=== PATIENT | female | born 1935 | race Caucasian/White ===

== ENCOUNTER 2019-08-25 16:06 | Inpatient (IN) | payer MEDICARE, MEDICAID ==
[~2019-08-25] VITALS: Ht 154.9 cm; Wt 65.8 kg
--- NOTE | 2019-08-25 16:34 | NUR ---
PATIENT CAME IN TO THE ER [id number], FROM HOME, WEAK AND HAD A FALL, -KO. ON ROOM AIR, BREATHING EVENLY AND UNLABORED. CONNECTED TO THE MONITOR AND PULSE OX. KEPT COMFORTABLE, WILL CONTINUE TO MONITOR ACCORDINGLY.
[2019-08-25 16:42] LABS: BASOPHILS # (AUTO) 0.1 /CMM (0.0-0.2); EOSINOPHILS % (AUTO) 2.4 % (0.0-6.0); HEMATOCRIT 43 % (33-45); HEMOGLOBIN 14.5 g/dL (11.5-14.8); LYMPHOCYTES # (AUTO) 1.3 /CMM (0.8-4.8); MEAN CORPUSCULAR HGB CONC 34 g/dl (31.0-36.0); MEAN CORPUSCULAR VOLUME 86 fL (82-100); MONOCYTES # (AUTO) 0.7 /CMM (0.1-1.30); MONOCYTES % (AUTO) 10.3 % (2.0-12.0); NEUTROPHILS # (AUTO) 4.7 /CMM (1.8-8.9); NEUTROPHILS % (AUTO) 67.3 % (43.0-81.0); PLATELET COUNT (AUTO) 148 /CMM (150-450); RED BLOOD CELL COUNT(AUTO) 5.03 MIL/uL (4.0-5.2)
[2019-08-25 16:52] LABS: CALCIUM, SERUM 11.1 mg/dL (8.5-10.1); CARBON DIOXIDE 23 mmol/L (21-32); CHLORIDE 105 mmol/L (98-107); CREATININE 1.3 mg/dL (0.6-1.3); GLUCOSE 155 mg/dL (74-106); POTASSIUM 4.1 mmol/L (3.5-5.1); SODIUM SERUM 137 mmol/L (136-145); UREA NITROGEN, BLOOD 28 mg/dL (7-18)
--- NOTE | 2019-08-25 16:55 | NUR ---
pt wheeled to ct
[2019-08-25 16:57] LABS: ALANINE AMINOTRANSFERASE 23 U/L (12-78); ALBUMIN 3.5 g/dL (3.4-5.0); ALKALINE PHOSPHATASE 129 U/L (46-116); ASPARTATE AMINOTRANSFERASE 16 U/L (15-37); BILIRUBIN,DIRECT 0.2 mg/dL (0.0-0.2); BILIRUBIN,TOTAL 0.6 mg/dL (0.2-1.0); TOTAL PROTEIN, SERUM 7.4 g/dL (6.4-8.2)
[2019-08-25 17:03] LABS: MAGNESIUM 2.3 mg/dL (1.8-2.4)
--- NOTE | 2019-08-25 17:04 | NUR ---
pt came back from ct
--- NOTE | 2019-08-25 18:24 | NUR ---
PAGED [facility].
[2019-08-25] MEDS ORDERED: MEMA1CAP3 PO (18:25)
[2019-08-25] MEDS ORDERED: IBAN150T16 PO (18:25)
[2019-08-25] MEDS ORDERED: GLIM1TAB2 PO (18:25)
[2019-08-25] MEDS ORDERED: LORA0.5T PO (18:25)
[2019-08-25] MEDS ORDERED: LOSA100T31 PO (18:25)
[2019-08-25] MEDS ORDERED: RIVA10TA PO (18:25)
[2019-08-25] MEDS ORDERED: MECL-102 PO (18:25)
[2019-08-25] MEDS ORDERED: METO-357 PO (18:25)
[2019-08-25] MEDS ORDERED: SITA1TAB6 PO (18:25)
--- NOTE | 2019-08-25 19:18 | NUR ---
REC'D REPORT FROM VALERIE LEVY FOR OBI
--- NOTE | 2019-08-25 19:40 | NUR ---
PAGED [facility].
[2019-08-25 20:00] VITALS: BP 176/75
--- NOTE | 2019-08-25 20:02 | NUR ---
GAVE REPORT TO URMILA LEVY FOR OBI
--- NOTE | 2019-08-25 20:19 | NUR ---
PT TRANSFERRED PER ACLS PROTOCOL
--- NOTE | 2019-08-25 20:25 | NUR ---
MICROWAVE ENGINEERROUTE DELIVERER NOTE: PT ADMITTED FROM ER VIA [facility] WITH ADMITTING DIAGNOSIS OF CHF. PT IS PAKISTANI SPEAKING ONLY, DAUGHTER AT BEDSIDE. PT IS ALERT AND ORIENTED X1. NO APPARENT DISTRESS NOTED. DENIES PAIN AND DISCOMFORT AT THIS TIME. ON ROOM AIR, NO SOB NOTED. SATURATING WELL. ON TELE MONITOR AFIB CONTROLLED HR 71BPM. IV ON RIGHT ANTECUBITAL #20 INTACT AND PATENT, FLUSHING WELL. PERTINENT ASSESSMENTS DONE. SKIN IS INTACT. KEPT CLEAN, DRY AND COMFORTABLE. CALL LIGHT PLACED WITHIN REACH. SIDE RAILS UP X3. BED ALARM ON. BED LOCKED AND IN LOWEST POSITION. WILL CONTINUE TO MONITOR PT.
[2019-08-25] MEDS ORDERED: ONDANSETRON HCL/PF 4 MG/2 ML VIAL IVP PRN (20:30)
[2019-08-25] MEDS ORDERED: POTASSIUM CHLORIDE 20 MEQ TAB.PRT.SR PO ONE (20:30)
[2019-08-25] MEDS ORDERED: ACETAMINOPHEN 325 MG TABLET PO PRN (20:30)
[2019-08-25] MEDS ORDERED: MECLIZINE HCL 25 MG TABLET PO PRN (20:30)
[2019-08-25] MEDS ORDERED: LORAZEPAM 0.5 MG TABLET PO PRN (20:30)
[2019-08-25] MEDS ORDERED: Z GUARD REMEDY 2 OZ OINT TP PRN (20:30)
[2019-08-25] MEDS ORDERED: POTASSIUM CHLORIDE 20 MEQ POWDER PACKET PO ONE (21:00)
[2019-08-25] MEDS ORDERED: ENOXAPARIN SODIUM 30 MG/0.3 ML DISP.SYRIN SQ SCH (21:00)
[2019-08-25] MEDS ORDERED: BUMETANIDE INJ 6 MG in IV NS 0.9% 36 ML IV ONE (21:00)
[2019-08-25] MEDS ORDERED: IV NS 0.9% 1,000 ML IV PRN (21:30)
[2019-08-25] MEDS ORDERED: DEXTROSE 50%-WATER 50 ML DISP.SYRIN IV PRN (21:30)
[2019-08-25] MEDS: DONEPEZIL 5 MG TABLET PO SCH (21:34)
[2019-08-25] MEDS: BLOOD SUGAR DIAGNOSTIC 1 EACH STRIP IN SCH (21:44)
[2019-08-25] MEDS: INSULIN REGULAR, HUMAN 100 UNIT/ML 3 ML VIAL SQ PRN (21:45)
[2019-08-25 21:49] VITALS: BP 176/75
[2019-08-26] VITALS (8 sets, daily range): BP systolic 156–191; BP diastolic 65–118
[2019-08-26] MEDS: hydrALAZINE HCL 25 MG TABLET PO PRN ×2 (00:37→08:35)
--- NOTE | 2019-08-26 06:37 | NUR ---
INFORMATION SYSTEMS CONSULTANT NOTE: NO CHANGES NOTED THROUGHOUT THE SHIFT. NO APPARENT DISTRESS NOTED. DENIES PAIN AND DISCOMFORT AT THIS TIME. ON ROOM AIR, NO SOB NOTED. AFIB CONTROLLED ON TELE MONITOR HR 80 BPM. IV ON RIGHT ANTECUBITAL #20 INTACT AND PATENT, IVF INFUSING WELL. KEPT CLEAN, DRY AND COMFORTABLE. SAFETY AND FALL PRECAUTIONS OBSERVED AND MAINTAINED. WILL ENDORSE TO DAY SHIFT RN FOR CONTINUITY OF CARE.
--- NOTE | 2019-08-26 07:10 | NUR ---
CASTING TECHNICIAN OPENING NOTES RECEIVED PT LYING ON BED,ALERT/ORIENTED X1 WITH UZBEK SPEAKING PT.ON TELE HR IS 90 WITH CONTROLLED A FIB.ON ROOM AIR,TOLERATING WELL.NO SOB AND DISTRESS NOTED.DENIES DIZZINESS AND PAIN FOR NOW.IV LINE IS ON RIGHT AC G20 WITH IV FLUID 0.9 %NS @100ML/HR IS RUNNING.SITE IS CLEAN,DRY AND INTACT.NO INFILTRATION NOTED.SAFETY IS MAINTAINED AT ALL TIMES.CALL LIGHT IS WITHIN REACH.WILL CONTINUE TO MONITOR THE PT CLOSELY.
[2019-08-26 07:45] LABS: BASOPHILS # (AUTO) 0.1 /CMM (0.0-0.2); BASOPHILS % (AUTO) 0.7 % (0.0-2.0); EOSINOPHILS % (AUTO) 1.9 % (0.0-6.0); HEMATOCRIT 43 % (33-45); HEMOGLOBIN 14.1 g/dL (11.5-14.8); LYMPHOCYTES # (AUTO) 1.4 /CMM (0.8-4.8); LYMPHOCYTES % (AUTO) 18.6 % (20.0-44.0); MEAN CORPUSCULAR HGB CONC 33 g/dl (31.0-36.0); MEAN CORPUSCULAR VOLUME 86 fL (82-100); MONOCYTES # (AUTO) 0.7 /CMM (0.1-1.30); MONOCYTES % (AUTO) 9.2 % (2.0-12.0); NEUTROPHILS # (AUTO) 5.3 /CMM (1.8-8.9); NEUTROPHILS % (AUTO) 69.6 % (43.0-81.0); PLATELET COUNT (AUTO) 130 /CMM (150-450); RED BLOOD CELL COUNT(AUTO) 5.03 MIL/uL (4.0-5.2); WHITE BLOOD COUNT (AUTO) 7.6 K/uL (4.3-11.0)
[2019-08-26] MEDS: BLOOD SUGAR DIAGNOSTIC 1 EACH STRIP IN SCH ×4 (07:58→22:04)
[2019-08-26] MEDS: INSULIN REGULAR, HUMAN 100 UNIT/ML 3 ML VIAL SQ PRN ×4 (08:03→22:10)
[2019-08-26 08:10] LABS: ALBUMIN 3.3 g/dL (3.4-5.0); BILIRUBIN,TOTAL 0.9 mg/dL (0.2-1.0); CALCIUM, SERUM 10.6 mg/dL (8.5-10.1); CREATININE 1.2 mg/dL (0.6-1.3); PHOSPHORUS 2.6 mg/dL (2.5-4.9); POTASSIUM 3.8 mmol/L (3.5-5.1)
[2019-08-26 08:15] LABS: THYROID STIMULATING HORMONE 1.263 uIU/mL (0.358-3.74)
[2019-08-26] MEDS: GLIMEPIRIDE 1 MG TABLET PO SCH (08:32)
[2019-08-26] MEDS: MEMANTINE HCL 5 MG TABLET PO SCH ×2 (08:33→17:04)
[2019-08-26] MEDS: LOSARTAN POTASSIUM 50 MG TABLET PO SCH (08:33)
[2019-08-26] MEDS: METOPROLOL SUCCINATE 50 MG TAB.SR.24H PO SCH (08:33)
[2019-08-26] MEDS: IV NS 0.9% 1,000 ML IV PRN ×2 (10:15→23:50)
[2019-08-26] MEDS ORDERED: RIVAROXABAN 10 MG TABLET PO SCH (17:00)
--- NOTE | 2019-08-26 17:30 | NUR ---
SYSTEMS SECURITY CONSULTANT NOTES ORDERED TO DO PT EVAL AND BID PER FAMILY REQUEST.NEW ORDERS NOTED AND CARRIED OUT.
--- NOTE | 2019-08-26 18:32 | NUR ---
INSTRUCTOR TAP DANCING CLOSING NOTES PT IS LYING ON BED.ALERT/ORIENTED X2.IV LINE IS IN PLACE.RESPIRATION IS EVEN AND NONLABORED.NO SIGNIFICANT CHANGES NOTED IN THE SHIFT.WILL ENDORSE TO ENDLESS STEAMER TENDER RN FOR OBI.
--- NOTE | 2019-08-26 20:00 | NUR ---
SAIRA RN OPENING NOTES RECEIVED BEDSIDE REPORT FROM AM RN. PT LYING ON BED,ALERT/ORIENTED X3 NAURUAN SPEAKING ONLY.ON TELE MONITOR CONTROLLED A FIB.ON ROOM AIR,TOLERATING WELL.NO SOB AND DISTRESS NOTED.DENIES DIZZINESS AND PAIN FOR NOW.IV LINE IS ON RIGHT AC G20 WITH IV FLUID 0.9 %NS @125ML/HR RUNNING.SITE IS CLEAN,DRY AND INTACT.NO INFILTRATION NOTED.SAFETY IS MAINTAINED AT ALL TIMES.CALL LIGHT IS WITHIN REACH.WILL CONTINUE TO MONITOR PT CLOSELY.
[2019-08-26] MEDS: DONEPEZIL 5 MG TABLET PO SCH (22:04)
[2019-08-27] VITALS: BP 160/94
[2019-08-27 04:00] VITALS: BP 112/64
[2019-08-27 05:24] VITALS: BP_SYST 112; BP_SYST 167; BP_DIAS 113; BP_DIAS 64
[2019-08-27 07:23] LABS: BASOPHILS % (AUTO) 0.7 % (0.0-2.0); EOSINOPHILS % (AUTO) 2.5 % (0.0-6.0); HEMATOCRIT 42 % (33-45); HEMOGLOBIN 13.7 g/dL (11.5-14.8); LYMPHOCYTES # (AUTO) 1.5 /CMM (0.8-4.8); LYMPHOCYTES % (AUTO) 21.9 % (20.0-44.0); MEAN CORPUSCULAR HGB CONC 33 g/dl (31.0-36.0); MEAN CORPUSCULAR VOLUME 86 fL (82-100); MONOCYTES # (AUTO) 0.8 /CMM (0.1-1.30); MONOCYTES % (AUTO) 10.6 % (2.0-12.0); NEUTROPHILS # (AUTO) 4.6 /CMM (1.8-8.9); NEUTROPHILS % (AUTO) 64.3 % (43.0-81.0); PLATELET COUNT (AUTO) 123 /CMM (150-450); WHITE BLOOD COUNT (AUTO) 7.1 K/uL (4.3-11.0)
--- NOTE | 2019-08-27 07:30 | NUR ---
tele grout sewer line repairer opening notes pt received in bed, a/ox1. on tele afib/aflutter. pt able to make needs know. blood pressure elevated 200/100. will administer bp meds and notify md. bed in locked/lowest position. call light in reach. will cont to monitor.
[2019-08-27 07:32] LABS: ALBUMIN 2.8 g/dL (3.4-5.0); BILIRUBIN,TOTAL 1.1 mg/dL (0.2-1.0); CREATININE 1.1 mg/dL (0.6-1.3); MAGNESIUM 1.9 mg/dL (1.8-2.4); PHOSPHORUS 2.6 mg/dL (2.5-4.9); POTASSIUM 3.7 mmol/L (3.5-5.1); TOTAL PROTEIN, SERUM 6.3 g/dL (6.4-8.2)
[2019-08-27] MEDS: BLOOD SUGAR DIAGNOSTIC 1 EACH STRIP IN SCH ×2 (07:54→12:19)
[2019-08-27 08:00] VITALS: BP 200/100
[2019-08-27] MEDS: GLIMEPIRIDE 1 MG TABLET PO SCH (08:03)
[2019-08-27] MEDS: METOPROLOL SUCCINATE 50 MG TAB.SR.24H PO SCH (08:05)
[2019-08-27] MEDS: hydrALAZINE HCL 25 MG TABLET PO PRN (08:05)
[2019-08-27] MEDS: LOSARTAN POTASSIUM 50 MG TABLET PO SCH (08:06)
[2019-08-27] MEDS: MEMANTINE HCL 5 MG TABLET PO SCH (08:06)
[2019-08-27] MEDS ORDERED: AMLODIPINE BESYLATE 10 MG TABLET PO SCH (09:00)
[2019-08-27] MEDS ORDERED: NITROGLYCERIN 30 GM TUBE TP SCH (10:00)
[2019-08-27] MEDS: hydrALAZINE HCL 50 MG TABLET PO SCH ×2 (10:13→12:39)
[2019-08-27 11:07] LABS: *SPE ALBUMIN 3.4 g/dL (2.9-4.4); *SPE ALPHA-1-GLOBULIN 0.2 g/dL (0.0-0.4); *SPE ALPHA-2-GLOBULIN 0.8 g/dL (0.4-1.0); *SPE BETA GLOBULIN 1.2 g/dL (0.7-1.3); *SPE GLOBULIN, TOTAL 3.3 g/dL (2.2-3.9); *SPE M-SPIKE Not Observed g/dL (Not Observed); *SPEGAMMA GLOBULIN 1.1 g/dL (0.4-1.8)
[2019-08-27] MEDS ORDERED: AMLO10TA7 PO (11:17)
[2019-08-27] MEDS ORDERED: HYDR-4077 PO (11:17)
[2019-08-27 12:00] VITALS: BP 155/80
[2019-08-27 12:39] VITALS: BP 155/80
[2019-08-27] MEDS: INSULIN REGULAR, HUMAN 100 UNIT/ML 3 ML VIAL SQ PRN (12:39)
[2019-08-27] MEDS ORDERED: INFLUENZA VACCINE 2019-20 0.5 ML DISP.SYRIN IM ONE (14:00)
[2019-08-27] MEDS ORDERED: PNEUMOCOCCAL 23-VAL P-SAC VAC 0.5 ML VIAL SQ ONE (14:00)
--- NOTE | 2019-08-27 16:30 | NUR ---
TRUST MANAGER NOTES PT WITH STABLE BP; IV REMOVED. TELE BOX REMOVED. DISCHARGE INSTRUCTIONS/PRESCRIPTION GIVEN TO PARAMEDICS. SKIN INTACT. FAMILY NOTIFIED OF DISCHARGE.
== END 2019-08-27 16:20 | disposition home health service (06) | DRG 291 ==
LOC: ER 16:09 → TELE1 20:03
PROVIDERS: ADMIT Nurse Practitioner Acute Care; ATTEND Internal Medicine
DX: I11.0 Hypertensive heart disease with heart failure (principal); N17.0 Acute kidney failure with tubular necrosis; G93.41 Metabolic encephalopathy; I48.20 Chronic atrial fibrillation, unspecified; I50.33 Acute on chronic diastolic (congestive) heart failure; E11.9 Type 2 diabetes mellitus without complications; G31.84 Mild cognitive impairment of uncertain or unknown etiology; E83.52 Hypercalcemia; E78.5 Hyperlipidemia, unspecified; E86.0 Dehydration; Z90.49 Acquired absence of other specified parts of digestive tract; Z91.81 History of falling; Z79.84 Long term (current) use of oral hypoglycemic drugs; Z86.73 Personal history of transient ischemic attack (TIA), and cerebral infarction without residual deficits; Z79.01 Long term (current) use of anticoagulants
CPT/HCPCS: 36415; 70450-TC; 71045-TC; 76770-TC; 80048-TC; 80053-TC; 80061-TC; 80076-TC; 82962-TC; 83540-TC; 83735-TC; 83880; 84100-TC; 84155; 84165; 84443-TC; 84484-TC; 85025-TC; 85730-TC; 87081-TC; 90732; 93307-TC; 97116-TC; 97530-TC; A4216; G0378; J1815; J3490; J7030; Q2036

== ENCOUNTER 2019-10-31 23:38 | Inpatient (IN) | payer MEDICARE, MEDICAID ==
[~2019-10-31] VITALS: Ht 165.1 cm; Wt 65.9 kg
[~2019-10-31 23:38] MED LIST: AMLO10TA7 PO; GLIM1TAB18 PO; HYDR-4077 PO; IBAN150T16 PO; LORA0.5T PO; LOSA100T31 PO; MECL-159 PO; MEMA1CAP3 PO; METO-357 PO; RIVA10TA PO; SITA1TAB6 PO
--- NOTE | 2019-10-31 23:46 | NUR ---
PHLEB AT BEDSIDE FOR BLOOD DRAW
--- NOTE | 2019-10-31 23:46 | NUR ---
PT BIBRA FROM HOME C/C "SOB AT HOME, 64% RA. GIVEN NITRO. PLACED ON CPAP" +SOB NOTED. VSS. ALERT/COMORAN SPEAKING. PT ON CPAP PER EMS. PT ON MONITOR IN BED 5. WILL CONTINUE TO MONITOR.
--- NOTE | 2019-10-31 23:49 | NUR ---
TECH AT BEDSIDE FOR EKG
[2019-10-31] MEDS ORDERED: NTG 50 MG/D5W250 ML BOTTL 250 ML IV ONE (23:53)
--- NOTE | 2019-10-31 23:53 | NUR ---
RADIOLOGY AT BEDSIDE FOR XRAY
[2019-10-31 23:57] LABS: BASOPHILS # (AUTO) 0.1 /CMM (0.0-0.2); BASOPHILS % (AUTO) 0.4 % (0.0-2.0); EOSINOPHILS % (AUTO) 1.3 % (0.0-6.0); HEMATOCRIT 44 % (33-45); HEMOGLOBIN 14.1 g/dL (11.5-14.8); LYMPHOCYTES # (AUTO) 1.2 /CMM (0.8-4.8); LYMPHOCYTES % (AUTO) 9.1 % (20.0-44.0); MEAN CORPUSCULAR HGB CONC 32 g/dl (31.0-36.0); MEAN CORPUSCULAR VOLUME 88 fL (82-100); MONOCYTES # (AUTO) 0.6 /CMM (0.1-1.30); MONOCYTES % (AUTO) 4.9 % (2.0-12.0); NEUTROPHILS # (AUTO) 11.1 /CMM (1.8-8.9); NEUTROPHILS % (AUTO) 84.3 % (43.0-81.0); PLATELET COUNT (AUTO) 168 /CMM (150-450); RED BLOOD CELL COUNT(AUTO) 4.96 MIL/uL (4.0-5.2); WHITE BLOOD COUNT (AUTO) 13.2 K/uL (4.3-11.0)
[2019-11-01] VITALS (25 sets, daily range): BP systolic 101–156; BP diastolic 40–103
[2019-11-01] MEDS ORDERED: NTG 50 MG/D5W250 ML BOTTL 50 MG/250 ML BTL IV ONE
--- NOTE | 2019-11-01 | NUR ---
DAUGHTER AT BEDSIDE
--- NOTE | 2019-11-01 00:03 | NUR ---
RT NOTE PT PLACED ON BIPAP PER MD ORDER. SETTINGS PRESCRIBED BY MD 10/22 100%. NO DISTRESS NOTED AT MOMENT. AZERBAIJANI SPEAKER ONLY. PT APPEARS AWAKE AND ALERT. NO DISTRESS NOTED. AMBU BAG AT BED SIDE. BIPAP PLUGGED IN TO RED OUTLET. Addendum: 11/01/19 at 0005 by JIM CHAMBERS RT Amended: Links added.
[2019-11-01 00:05] LABS: CALCIUM, SERUM 10.6 mg/dL (8.5-10.1); CARBON DIOXIDE 26 mmol/L (21-32); CHLORIDE 104 mmol/L (98-107); CREATININE 1.3 mg/dL (0.6-1.3); GLUCOSE 265 mg/dL (74-106); POTASSIUM 4.1 mmol/L (3.5-5.1); SODIUM SERUM 138 mmol/L (136-145); UREA NITROGEN, BLOOD 24 mg/dL (7-18)
--- NOTE | 2019-11-01 00:36 | NUR ---
PT TAKEN OFF BIPAP PER MD ORDER. 2L NC. O2 97%. PT TOLERATING WELL.
[2019-11-01] MEDS ORDERED: FUROSEMIDE 40 MG/4 ML VIAL ONE (00:37)
[2019-11-01] MEDS ORDERED: ONDANSETRON HCL/PF 4 MG/2 ML VIAL ONE (00:39)
--- NOTE | 2019-11-01 00:59 | NUR ---
PT PLACED BACK ON BIPAP PER MD ORDER
[2019-11-01] MEDS ORDERED: ONDANSETRON HCL/PF 4 MG/2 ML VIAL IV ONE (01:00)
[2019-11-01] MEDS ORDERED: FUROSEMIDE 40 MG/4 ML VIAL IV ONE (01:00)
--- NOTE | 2019-11-01 01:14 | NUR ---
Patient is resting comfortably in bed with eyes closed. Easily aroused. VSS.
--- NOTE | 2019-11-01 01:22 | NUR ---
BED 258
--- NOTE | 2019-11-01 01:43 | NUR ---
REPORT GIVEN TO MILDRED MENDOZA FOR OBI
--- NOTE | 2019-11-01 02:00 | NUR ---
RECEIVED PATIENT IN NO ACUTE DISTRESS IN BED. PATIENT IS A/O X 3 AND ABLE TO MAKE NEEDS KNOWN. PATIENT IS VINCENTIAN SPEAKING ONLY, BUT ABLE TO VERBALIZE NEEDS WITH RN CYCLE DIRECTOR AT BEDSIDE. PATIENT IS ON O2 VIA BIPAP WITH SETTING AT 12/5 RATE 12, FIO2 80%. PATIENT TOLERATING BIPAP SETTING WITH O2 SAT @ 99%. PATIENT IS ON TELEMETRY WITH CONTROLLED AFIB ON THE MONITOR. PATIENT HAS LEFT AC 20G IV THAT IS CLEAN DRY INTACT AND PATENT WITH NITRO DRIP @ 100MCG. PATIENT HAS RIGHT AC 20G THAT IS CLEAN DRY INTACT AND PATENT WITH SALINE FLUSH. BED IN LOW LOCK POSITION WITH RIALS UP X 2. CALL LIGHT WITHIN REACH AND ALL SAFETY MEASURES ENSURED AND CARRIED OUT. WILL CONTINUE TO MONITOR.
--- NOTE | 2019-11-01 02:20 | NUR ---
PT RECEIVED ON BIPAP. WILL CONTINUE TO MONITOR.
[2019-11-01] MEDS ORDERED: HYDROCODONE/APAP 5/325MG 1 EACH TABLET PO PRN (02:30)
[2019-11-01] MEDS ORDERED: MAGNESIUM HYDROXIDE 30 ML UDC PO PRN (02:30)
[2019-11-01] MEDS ORDERED: ONDANSETRON HCL/PF 4 MG/2 ML VIAL IVP PRN (02:30)
[2019-11-01] MEDS ORDERED: DEXTROSE 50%-WATER 50 ML DISP.SYRIN IV PRN (02:30)
[2019-11-01] MEDS ORDERED: ACETAMINOPHEN 325 MG TABLET PO PRN (02:30)
[2019-11-01] MEDS ORDERED: MAG HYDROX/AL HYDROX/SIMETH 30 ML UDC PO PRN (02:30)
[2019-11-01] MEDS ORDERED: CLONIDINE HCL 0.1 MG TABLET PO PRN (02:30)
[2019-11-01] MEDS ORDERED: Z GUARD REMEDY 2 OZ OINT TP PRN (02:30)
--- NOTE | 2019-11-01 02:45 | NUR ---
NOTIFIED DR. MENDOZA IF HE WANTED TO KEEP PATIENT ON NITRO DRIP. PER DR. MENDOZA DISCONTINUE NITRO DRIP AND PLACE NITRO PATCH. READ BACK ORDERS PERFORMED AND CARRIED OUT. NITRO DRIP TITRATED DOWN AND DISCONTINUED AND NITRO PATCH PLACED ON PATIENT PER ORDERS.
[2019-11-01] MEDS: NITROGLYCERIN PACKET 1 GM PACKET TOP SCH ×4 (02:50→21:12)
[2019-11-01] MEDS: METOPROLOL SUCCINATE 50 MG TAB.SR.24H PO SCH ×2 (02:50→10:46)
[2019-11-01] MEDS: hydrALAZINE HCL 50 MG TABLET PO SCH ×4 (02:50→17:00)
[2019-11-01] MEDS: AMLODIPINE BESYLATE 10 MG TABLET PO SCH ×2 (02:50→10:47)
--- NOTE | 2019-11-01 03:00 | NUR ---
Notified bone drier operator pharmacy because nitro patch given at 0300 per orders, but was changed by pharmacy to 0500. Per pharmacist skip 0500 dose and continue with the 1300 dose.
[2019-11-01 04:58] LABS: ABG BASE EXCESS -5.2 mmol/L; ABG OXYGEN SATURATION 97.9 % (92.0-98.5); ABG PCO2 34.1 mmHg (35.0-45.0); ABG PH 7.368 (7.350-7.450); ABG PO2 129.6 mmHg (75.0-100.0); AaDO2 188.5 mmHg; COHb 0.8 % (0.5-1.5); MetHb 0.2 % (0.0-1.5); O2Hb 96.9 % (94.0-97.0); SITE, ABG Right Radial
--- NOTE | 2019-11-01 05:05 | NUR ---
Received ABG from RT Bert with results of PH- 7.368, pco2- 34.1, po2- 129.6 (on bipap), hco3 19.2. Fio2 titrated down to 40%. Will continue to monitor.
--- NOTE | 2019-11-01 08:56 | NUR ---
RN NOTES 0730-RECEIVED PATIENT FROM RN. PATIENT ON BIPAP, APPEARS COMFORTABLE. SHE DENIES PAIN, SHE REMAISN ON AFIB, BP WITHIN RANGE. 0830-ON NASAL CANNULA, AWAKE, ALERT, DENIES PAIN. BREAKFAST TRAY SERVED.MONITOR STATUS
[2019-11-01] MEDS: RIVAROXABAN 10 MG TABLET PO SCH (09:14)
[2019-11-01] MEDS: FUROSEMIDE 40 MG/4 ML VIAL IV SCH ×2 (09:16→17:10)
[2019-11-01] MEDS: BLOOD SUGAR DIAGNOSTIC 1 EACH STRIP VI SCH ×4 (09:48→21:19)
[2019-11-01] MEDS: INSULIN REGULAR, HUMAN 100 UNIT/ML 3 ML VIAL SQ PRN ×2 (09:49→12:35)
[2019-11-01] MEDS: LOSARTAN POTASSIUM 50 MG TABLET PO SCH (10:46)
--- NOTE | 2019-11-01 13:37 | NUR ---
RN NOTES 1200-PATIENT AWAKE, ALERT, NO SIGN OF PAIN, TOLERATES 2 LPM/NC, DENIES PAIN. ACCU-CHECKS DONE, INSULIN COVERAGE ADMINISTERED ORDERED. LUNCH TRAY SERVED, SAFETY MAINTAINED. REST PERIODS PROMOTED.CONTINUE MONITOR STATUS
--- NOTE | 2019-11-01 16:22 | NUR ---
RN NOTES 1410-PATIENT DOSING OFF, OPENS EYES TO VOICE WHEN NAME CALLED OUT LOUD. DENIES PAIN WHEN ASKED.REPOSITIONED FOR COMFORT AND SAFETY 1600-PATIENT DAUGHTER ALONSO VISITS, SHE WAS UPDATED OF PATIENT STATUS. ALONSO STATES PATIENT WALKS AT HOME WITH WALKER, OFFERED TO HAVE PATIENT SIT AT THE EDGE OF BED, SHE ASKED PATIENT AND APPARENTLY PATIENT "DID NOT WANT TO". REST PROMOTED.PATIENT BELONGINGS GIVEN TO ALONSO TO TAKE HOME
--- NOTE | 2019-11-01 18:55 | NUR ---
RN NOTES 1840-PATIENT AWAKE, ALERT, DENIES PAIN. SATURATION UP TO 93-94%. DEEP BREATHING ENCOURAGED.REMAINS ON LASIX, ADEQUATE DIURESIS NOTED.DENIES PAIN, DENIES SOB. TRANSFERRED TO [facility] SAFELY, REPORT GIVEN TO RN FOR FURTHER CARE
--- NOTE | 2019-11-01 19:00 | NUR ---
SPORTS STATISTICIAN NOTES RECEIVED PATIENT FROM MILDRED VALDEZ (ICU), A/OX4 SPEAKS CITIZEN OF [place]. ON 2 L NASAL CANULA O2 93%. PATIENT HAS 2 PATENT IV LINES BILATERAL AC. EDEMA NOTED ON BILATERAL LOWER LEG. PATIENT IS ABLE TO EAT BY HERSELF WITH ASSISTANCE, PO MEDS NEEDS TO BE CRUSHED WITH APPLE SAUCE. NO SOB OR DISCOMFORT NOTED AT THIS TIME, DENIES ANY PAIN. CALL LIGHT WITHIN REACH, BED AT THE LOWEST POSITION, LOCKED. ENDORSED TO DESK EDITOR NURSE FOR OBI.
--- NOTE | 2019-11-01 19:15 | NUR ---
MANIPULATOR OPERATOR OPENING NOTES Received patient, A/O x4, asleep, easily awaken on bed. On RA, no SOB/respiratory distress noted. No complaints/discomfort noted at this time. Kept on bed clean, dry and comfortable. Call light within easy reach. On fall and aspiration precautions. Will continue to monitor accordingly.
--- NOTE | 2019-11-01 19:16 | NUR ---
AMMUNITION OFFICER NOTES On tele monitor with controlled A-fib/aflutter noted. No complaints/s/sx of discomfort noted noted at this time.
[2019-11-01] MEDS: *INSULIN REGULAR(HUMULIN R)HUM 100 UNIT/ML VIAL SQ PRN (21:21)
[2019-11-02] VITALS: BP 106/61
[2019-11-02 04:00] VITALS: BP 118/89
[2019-11-02] MEDS: NITROGLYCERIN PACKET 1 GM PACKET TOP SCH ×3 (05:08→21:30)
[2019-11-02] MEDS: BLOOD SUGAR DIAGNOSTIC 1 EACH STRIP VI SCH ×4 (06:33→21:30)
[2019-11-02] MEDS: INSULIN REGULAR, HUMAN 100 UNIT/ML 3 ML VIAL SQ PRN ×2 (06:35→12:00)
--- NOTE | 2019-11-02 06:41 | NUR ---
ANALYTICAL STRATEGIST CLOSING NOTES Patient asleep, easily awaken. Afebrile the whole shift, no SOB/respiratory distress noted. All due meds given as ordered. All nursing needs attended. Kept on bed clean, dry and comfortable. Call light within easy reach. On fall and aspiration precautions. Endorsed to the next shift.
[2019-11-02 06:44] LABS: BASOPHILS % (AUTO) 0.5 % (0.0-2.0); EOSINOPHILS % (AUTO) 1.7 % (0.0-6.0); HEMATOCRIT 42 % (33-45); HEMOGLOBIN 13.7 g/dL (11.5-14.8); MEAN CORPUSCULAR HGB CONC 33 g/dl (31.0-36.0); MEAN CORPUSCULAR VOLUME 87 fL (82-100); MONOCYTES # (AUTO) 0.9 /CMM (0.1-1.30); MONOCYTES % (AUTO) 9.5 % (2.0-12.0); NEUTROPHILS # (AUTO) 7.1 /CMM (1.8-8.9); NEUTROPHILS % (AUTO) 77.3 % (43.0-81.0); PLATELET COUNT (AUTO) 157 /CMM (150-450); RED BLOOD CELL COUNT(AUTO) 4.76 MIL/uL (4.0-5.2); WHITE BLOOD COUNT (AUTO) 9.3 K/uL (4.3-11.0)
[2019-11-02 07:16] LABS: CALCIUM, SERUM 10.2 mg/dL (8.5-10.1); CARBON DIOXIDE 27 mmol/L (21-32); CHLORIDE 105 mmol/L (98-107); CREATININE 1.6 mg/dL (0.6-1.3); GLUCOSE 123 mg/dL (74-106); MAGNESIUM 1.9 mg/dL (1.8-2.4); PHOSPHORUS 2.7 mg/dL (2.5-4.9); POTASSIUM 3.5 mmol/L (3.5-5.1); SODIUM SERUM 141 mmol/L (136-145); UREA NITROGEN, BLOOD 32 mg/dL (7-18)
--- NOTE | 2019-11-02 07:33 | NUR ---
SHIPPING TECHNICIAN OPENING NOTES PATIENT RECEIVED IN BED AWAKE, CALM, A/O X 1. PATIENT VERBALIZES NO PAIN, NO DISCOMFORT. PT ON O2 SATURATING WELL ON 2L PER NC. NO SIGNS OF DISCOMFORT OR DISTRESS NOTED AT THIS TIME. IV LINE IN RAC GAUGE # 20 AND LAC GAUGE # 20 PATENT, INTACT AND FLUSHING WELL. PT ON CARDIAC MONITORING CURRENTLY READING AFIB/A FLUTTER WITH HR IN HIGH 80S. SAFETY PRECAUTIONS IN PACE: BED IN LOW POSITION, LOCKED, HOB ELEVATED 30 DEGREES, RAILS UP X 2, CALL LIGHT WITHIN REACH. WILL CONTINUE TO MONITOR PATIENT.
[2019-11-02 07:39] LABS: CREATINE KINASE, TOTAL 15 U/L (26-192)
[2019-11-02 08:00] VITALS: BP 132/75
[2019-11-02] MEDS: hydrALAZINE HCL 50 MG TABLET PO SCH ×3 (08:41→16:18)
[2019-11-02] MEDS: AMLODIPINE BESYLATE 10 MG TABLET PO SCH (08:43)
[2019-11-02] MEDS: LOSARTAN POTASSIUM 50 MG TABLET PO SCH (08:43)
[2019-11-02] MEDS: RIVAROXABAN 10 MG TABLET PO SCH (08:45)
[2019-11-02] MEDS: METOPROLOL SUCCINATE 50 MG TAB.SR.24H PO SCH (08:45)
[2019-11-02] MEDS: FUROSEMIDE 40 MG TABLET PO SCH (08:52)
[2019-11-02 10:23] LABS: ABG BASE EXCESS -2.6 mmol/L; ABG OXYGEN SATURATION 90.4 % (92.0-98.5); ABG PCO2 37.7 mmHg (35.0-45.0); ABG PH 7.384 (7.350-7.450); ABG PO2 60.2 mmHg (75.0-100.0); AaDO2 87.7 mmHg; COHb 0.8 % (0.5-1.5); MetHb 0.2 % (0.0-1.5); O2Hb 89.5 % (94.0-97.0); SITE, ABG Right Radial; VENT MODE, BG Nasal Cannula
[2019-11-02 12:00] VITALS: BP 104/67
[2019-11-02 16:00] VITALS: BP 119/59
--- NOTE | 2019-11-02 18:41 | NUR ---
GRADES 7 AND 8 TEACHER CLOSING NOTES PATIENT SITTING IN CHAIR BY BEDSIDE WATCHING TV. A/OX2. FORGETFUL AND SPEAKS FINNISH. PO MEDS NEEDS TO BE CRUSHED WITH APPLE SAUCE AND TOLERATED. ON SUPPLEMENTAL 02 VIA N/C @ 2LPM, TOLERATING WELL WITH NO ACUTE RESPIRATORY DISTRESS NOTED. TELE-MONITORING SHOWS A-FIB AND OCCASIONAL A FLUTTER CONTROLLED WITH HR ON THE 90'S, NO C/O CARDIAC DISTRESS VOICED DURING THE DAY. PATIENT HAS 2 PATENT PIV LINES ON BILATERAL AC AND BOTH FLUSHES WELL. ALL NEEDS AND CARE PROVIDED WELL. SAFETY MEASURES KEPT IN PLACE. CALL LIGHT WITHIN REACH. WILL ENDORSE TO CELLOPHANER NURSE FOR OBI.
--- NOTE | 2019-11-02 19:40 | NUR ---
SENIOR MOBILE APPLICATION DEVELOPER NOTE: PATIENT RESTING IN BED, NO ACUTE DISTRESS NOTED. BREATHING EVEN AND UNLABORED, NO SOB NOTED. IV TO RAC AND LAC IN PLACE. NO S/S OF HYPER/HYPOGLYCEMIA NOTED. BED LOCKED AND IN LOWEST POSITION, CALL LIGHT IN REACH. WILL CONTINUE TO MONITOR.
[2019-11-02 20:27] VITALS: BP 130/88
[2019-11-02] MEDS: *INSULIN REGULAR(HUMULIN R)HUM 100 UNIT/ML VIAL SQ PRN (21:51)
[2019-11-03 00:51] VITALS: BP 106/64
[2019-11-03] MEDS: NITROGLYCERIN PACKET 1 GM PACKET TOP SCH ×3 (05:00→21:34)
[2019-11-03] MEDS: BLOOD SUGAR DIAGNOSTIC 1 EACH STRIP VI SCH ×4 (07:30→21:34)
--- NOTE | 2019-11-03 07:30 | NUR ---
TELE/RN OPENING NOTES PATIENT RECEIVED IN BED SLEEPING COMFORTABLY. EASILY AROUSABLE. NO PAIN OR ACUTE DISTRESS AT THIS TIME. RESPIRATION EVEN AND UNLABORED. SKIN IS DRY WARM TO TOUCH. IV LINE IN RAC GAUGE #20. INTACT AND FLUSHING WELL. NO S/S OF INFECTION OR INFILTRATION. CONTINUES ON CARDIAC MONITORING WITH HR OF 85S. ALL NEEDS ANTICIPATED. CALL LIGHT WITHIN REACHED. BED LOCKED AND IN LOWEST POSITION. PLAN OF CARE DISCUSSED. WILL CONTINUE TO MONITOR CLOSELY.
[2019-11-03 07:54] LABS: CALCIUM, SERUM 10.2 mg/dL (8.5-10.1); CARBON DIOXIDE 27 mmol/L (21-32); CHLORIDE 103 mmol/L (98-107); CREATININE 1.4 mg/dL (0.6-1.3); GLUCOSE 189 mg/dL (74-106); POTASSIUM 3.8 mmol/L (3.5-5.1); SODIUM SERUM 140 mmol/L (136-145); UREA NITROGEN, BLOOD 33 mg/dL (7-18)
[2019-11-03 08:11] VITALS: BP 134/89
[2019-11-03 08:58] LABS: BASOPHILS # (AUTO) 0.1 /CMM (0.0-0.2); BASOPHILS % (AUTO) 0.5 % (0.0-2.0); EOSINOPHILS % (AUTO) 1.1 % (0.0-6.0); HEMATOCRIT 42 % (33-45); HEMOGLOBIN 13.8 g/dL (11.5-14.8); LYMPHOCYTES # (AUTO) 0.7 /CMM (0.8-4.8); MEAN CORPUSCULAR HGB CONC 33 g/dl (31.0-36.0); MEAN CORPUSCULAR VOLUME 87 fL (82-100); MONOCYTES # (AUTO) 0.9 /CMM (0.1-1.30); MONOCYTES % (AUTO) 8.2 % (2.0-12.0); NEUTROPHILS # (AUTO) 8.6 /CMM (1.8-8.9); NEUTROPHILS % (AUTO) 83.2 % (43.0-81.0); PLATELET COUNT (AUTO) 159 /CMM (150-450); RED BLOOD CELL COUNT(AUTO) 4.81 MIL/uL (4.0-5.2); WHITE BLOOD COUNT (AUTO) 10.3 K/uL (4.3-11.0)
[2019-11-03] MEDS ORDERED: DILTIAZEM HCL 25 MG IV IV ONE (09:30)
[2019-11-03] MEDS: FUROSEMIDE 40 MG TABLET PO SCH (09:46)
[2019-11-03] MEDS: hydrALAZINE HCL 50 MG TABLET PO SCH ×3 (09:46→16:52)
[2019-11-03] MEDS: AMLODIPINE BESYLATE 10 MG TABLET PO SCH (09:46)
[2019-11-03] MEDS: LOSARTAN POTASSIUM 50 MG TABLET PO SCH (09:47)
[2019-11-03] MEDS: METOPROLOL SUCCINATE 50 MG TAB.SR.24H PO SCH (09:47)
[2019-11-03] MEDS: RIVAROXABAN 10 MG TABLET PO SCH (09:51)
--- NOTE | 2019-11-03 10:53 | NUR ---
TELE/RN NOTES TRANSFERRED CARE TO MILDRED ENGLAND, REPORT WAS GIVEN WELL. PATIENT CONTINUES TO REMAIN IN STABLE CONDITION THROUGHOUT THE SHIFT. PROVIDED COMFORT AND SAFETY. WILL CONTINUE TO MONITOR CLOSELY.
--- NOTE | 2019-11-03 10:55 | NUR ---
SEAL MIXING OPERATOR NOTES RECEIVED PATIENT FROM MILDRED CHENG IN STABLE CONDITION. A/OX1-2, TO NAME AND PLACE. REORIENTED PATIENT. NOT IN ANY FORM OF DISTRESS. NO SOB. NO S/S OF PAIN OR DISCOMFORT AT THIS TIME. IV ACCESS INTACT AND PATENT, NO REDNESS, NO INFILTRATION NOTED. KEPT PATIENT SAFE AND COMFORTBLE BED IN LOW/LOCKED POSITION, SIDERAILS UP X 2, CALL LIGHT IN REACH. WILL MONITOR ACCORDINGLY.
--- NOTE | 2019-11-03 11:57 | NUR ---
rn notes scheduled 0500 nitro and 0700 accucheck non admin. but was already given by previous nurse. system was down in the morning. Addendum: 11/03/19 at 1158 by RUBEN MARQUEZ RN non admin on eMar
[2019-11-03 12:03] LABS: *SPE ALBUMIN 3.4 g/dL (2.9-4.4); *SPE ALPHA-1-GLOBULIN 0.2 g/dL (0.0-0.4); *SPE ALPHA-2-GLOBULIN 0.8 g/dL (0.4-1.0); *SPE BETA GLOBULIN 1.2 g/dL (0.7-1.3); *SPE GLOBULIN, TOTAL 3.3 g/dL (2.2-3.9); *SPE M-SPIKE Not Observed g/dL (Not Observed); *SPEGAMMA GLOBULIN 1.1 g/dL (0.4-1.8)
[2019-11-03 13:12] VITALS: BP 104/66
[2019-11-03 14:06] LABS: PTH, INTACT 134 pg/mL (15-65)
--- NOTE | 2019-11-03 15:30 | NUR ---
RN NOTES PATIENT AMBULATED AROUND THE UNIT WITH DAUGHTER, ASSISTED BY PRIMARY NURSE AND SANDBLASTING SUPERVISOR. PATIENT TOLERATED WELL.
[2019-11-03 16:49] VITALS: BP 107/51
[2019-11-03] MEDS: INSULIN REGULAR, HUMAN 100 UNIT/ML 3 ML VIAL SQ PRN (17:10)
--- NOTE | 2019-11-03 19:30 | NUR ---
RN CLOSING NOTES PATIENT IN STABLE CONDITION. ALL NEEDS ATTENDED AND PROVIDED. ALL DUE MEDICATIONS GIVEN ORDERED. KEPT PATIENT SAFE AND COMFORTABLE. BED IN LOW/LOCKED POSITION, SIDERAILS UP X 2, BED ALARM ON. CALL LIGHT IN REACH. ENDORSED TO NIGHT RN FOR OBI.
--- NOTE | 2019-11-03 19:50 | NUR ---
FUNERAL HOME ASSISTANT NOTE: PATIENT RESTING IN BED, NO ACUTE DISTRESS NOTED. BREATHING EVEN AND UNLABORED, NO SOB NOTED. IV TO RAC IN PLACE. NO S/S OF HYPER/HYPOGLYCEMIA NOTED. BED LOCKED AND IN LOWEST POSITION, CALL LIGHT IN REACH. WILL CONTINUE TO MONITOR.
[2019-11-03 20:17] VITALS: BP 104/55
--- NOTE | 2019-11-03 21:30 | NUR ---
ADJUNCT ART HISTORY INSTRUCTOR NOTE: PATIENT IV TO RAC LEAKING, NEW IV STARTED TO LAC #22 WITH GOOD BLOOD RETURN. IV TO RAC REMOVED, COVERED WITH GAUZE, PRESSURE APPLIED AND SECURED WITH TAPE. WILL CONTINUE TO MONITOR.
--- NOTE | 2019-11-03 21:45 | NUR ---
RN OCCUPATIONAL HEALTH NOTE: PATIENT BLOOD SUGAR LEVEL 144MG/DL, PATIENT TO RECEIVE 2 UNITS PER SLIDING SCALE. NO S/S OF HYPER/HYPOGLYCEMIA NOTED. WILL CONTINUE TO MONITOR.
[2019-11-03] MEDS: *INSULIN REGULAR(HUMULIN R)HUM 100 UNIT/ML VIAL SQ PRN (22:06)
[2019-11-04 00:20] VITALS: BP 110/50
[2019-11-04 04:00] VITALS: BP 118/60
[2019-11-04] MEDS: NITROGLYCERIN PACKET 1 GM PACKET TOP SCH ×3 (05:39→21:24)
--- NOTE | 2019-11-04 06:30 | NUR ---
BURR SANDER NOTE: PATIENT RESTING IN BED, NO ACUTE DISTRESS NOTED. BREATHING EVEN AND UNLABORED, NO SOB NOTED. IV TO LAC IN PLACE. BLOOD SUGAR LEVEL 192MG/DL, PATIENT TO RECEIVE 3 UNITS PER SLIDING SCALE. NO S/S OF HYPER/HYPOGLYCEMIA NOTED. BED LOCKED AND IN LOWEST POSITION, CALL LIGHT IN REACH. WILL ENDORSE TO DAY NURSE TO CONTINUE WITH PLAN OF CARE.
[2019-11-04] MEDS: BLOOD SUGAR DIAGNOSTIC 1 EACH STRIP VI SCH ×4 (06:46→23:04)
[2019-11-04] MEDS: INSULIN REGULAR, HUMAN 100 UNIT/ML 3 ML VIAL SQ PRN ×2 (06:48→23:09)
[2019-11-04 07:04] LABS: ALANINE AMINOTRANSFERASE 12 U/L (12-78); ALBUMIN 2.8 g/dL (3.4-5.0); ALKALINE PHOSPHATASE 121 U/L (46-116); ASPARTATE AMINOTRANSFERASE 7 U/L (15-37); BILIRUBIN,TOTAL 1.3 mg/dL (0.2-1.0); CALCIUM, SERUM 10.3 mg/dL (8.5-10.1); CARBON DIOXIDE 26 mmol/L (21-32); CHLORIDE 105 mmol/L (98-107); CREATININE 1.5 mg/dL (0.6-1.3); GLUCOSE 196 mg/dL (74-106); POTASSIUM 3.6 mmol/L (3.5-5.1); SODIUM SERUM 141 mmol/L (136-145); TOTAL PROTEIN, SERUM 6.9 g/dL (6.4-8.2); UREA NITROGEN, BLOOD 40 mg/dL (7-18)
--- NOTE | 2019-11-04 07:30 | NUR ---
RN OPENING NOTES PT SITTING IN HIGH FOWLERS POSITION. PT IS NIUEAN SPEAKING WITH LITTLE [place] HELENIAN. PT DENIES PAIN OR SOB AT PRESENT MOMENT. PT HAS 4 L O2 VIA NC ON. PT REMOVES NC FREQUENTLY AND NEEDS TO BE REMINDED TO PLACE IT BACK ON. BED IS LOCKED AND IN LOWEST POSITION WILL CONTINUE TO MONITOR.
[2019-11-04 08:00] VITALS: BP 139/62
[2019-11-04] MEDS: FUROSEMIDE 40 MG TABLET PO SCH (08:38)
[2019-11-04] MEDS: LOSARTAN POTASSIUM 50 MG TABLET PO SCH (08:38)
[2019-11-04] MEDS: AMLODIPINE BESYLATE 10 MG TABLET PO SCH (08:38)
[2019-11-04] MEDS: METOPROLOL SUCCINATE 50 MG TAB.SR.24H PO SCH (08:39)
[2019-11-04] MEDS: hydrALAZINE HCL 50 MG TABLET PO SCH ×3 (08:39→17:00)
[2019-11-04] MEDS: RIVAROXABAN 10 MG TABLET PO SCH (08:40)
--- NOTE | 2019-11-04 11:48 | NUR ---
TRANSFER OF CARE, REPORT GIVEN TO JOSE LEVY FOR OBI.
[2019-11-04] MEDS ORDERED: METOPROLOL SUCCINATE 25 MG TAB.SR.24H PO ONE (13:00)
[2019-11-04 16:00] VITALS: BP 107/62
[2019-11-04] MEDS: LORAZEPAM 0.5 MG TABLET PO PRN (17:13)
--- NOTE | 2019-11-04 17:25 | NUR ---
MS/RN - Notes Spoke with Dr. Gutiérrez (advertising analyst) regarding episode of elevated heart rate 110-130s, tele showed A. Fib. Per Md, he adjusted the dose of Metoprolol and it should help. If heart rate continues in the 120s, may give Diltiazem 5 mg IVP once.
[2019-11-04] MEDS ORDERED: DILTIAZEM HCL 25 MG IV IV ONE (18:00)
[2019-11-04] MEDS ORDERED: DILTIAZEM HCL 25 MG IV IV PRN (18:00)
--- NOTE | 2019-11-04 19:22 | NUR ---
MS/RN - End of shift summary No new events seen, heart rate improved. Patient to be discharged tonight to [facility], call for report at [phone], pick time by ambulance at 21:00 (trip# [id number]), Philip daughter made aware of discharge time. All needs attended. Will endorse to night nurse for continuity of care.
[2019-11-04 20:00] VITALS: BP 124/70
--- NOTE | 2019-11-04 21:52 | NUR ---
ms johnny notes supervisor decorating came to cigar packer and picker the pt for dc to [facility], Vital signs taken 147/76 heart rate runs to 88-134 and O2 sat 88 to 91 % with O2 sat at 2 liters via NC. pt is awake and alert no signs of any distress at this time. called sales professional bilingual MD and he ordered to hold DC for tonight and continue monitoring the pt.
--- NOTE | 2019-11-04 22:08 | NUR ---
MS DIVINE NOTES CALLED [facility] TO LET THEM KNOW THE PT WILL HOLD DC FOR TONIGHT SPOKE TO [facility] . CALLED PT DAUGHTER SERAFIN AND LEFT A MESSAGES TO LET HER KNOW THAT HER MOM HOLD DC TONIGHT ORDERED BY DR ROMERO.
[2019-11-05] MEDS: NITROGLYCERIN PACKET 1 GM PACKET TOP SCH ×2 (05:12→13:08)
[2019-11-05 05:42] VITALS: BP 110/67
[2019-11-05] MEDS: BLOOD SUGAR DIAGNOSTIC 1 EACH STRIP VI SCH ×2 (06:25→12:05)
[2019-11-05] MEDS: INSULIN REGULAR, HUMAN 100 UNIT/ML 3 ML VIAL SQ PRN ×2 (06:27→12:07)
--- NOTE | 2019-11-05 07:37 | NUR ---
MS LOCAL HAZMAT DRIVER CLOSING NOTES BLOOD SUGAR CHECKED DONE 153, 2 UNITS IF INSULIN GIVEN VIRGIL SQ ORDERED. NO SIGNS OF HYPO GLYCEMIA NOTED. KEPT HER WARM AND COMFORTABLE AT ALL TIMES. ENDORSE TO AM NURSE FOR CONTINUITY OF CARE.
--- NOTE | 2019-11-05 07:54 | NUR ---
MS RN OPENING NOTES Received Patient asleep and resting in bed. Patient in stable condition with no acute distress. Breathing even and unlabored on 2LPM via NC with no respiratory distress. No signs and symptoms of pain. 22g PIV on LAC clean, intact, patent and flushing well. Safety precautions in place. Bed locked and set to lowest position with side rails x 2 up. All needs rendered at this time. Call light within reach. Will continue to monitor.
[2019-11-05 08:00] VITALS: BP 114/72
[2019-11-05] MEDS ORDERED: METOPROLOL SUCCINATE 50 MG TAB.SR.24H PO SCH (09:00)
[2019-11-05] MEDS: RIVAROXABAN 10 MG TABLET PO SCH (09:28)
[2019-11-05] MEDS: hydrALAZINE HCL 50 MG TABLET PO SCH ×2 (09:29→13:09)
[2019-11-05] MEDS: FUROSEMIDE 40 MG TABLET PO SCH (09:29)
[2019-11-05] MEDS: LOSARTAN POTASSIUM 50 MG TABLET PO SCH (09:29)
[2019-11-05] MEDS: AMLODIPINE BESYLATE 10 MG TABLET PO SCH (09:30)
[2019-11-05 10:03] LABS: ABG BASE EXCESS -0.6 mmol/L; ABG OXYGEN SATURATION 89.5 % (92.0-98.5); ABG PCO2 30.3 mmHg (35.0-45.0); ABG PH 7.477 (7.350-7.450); ABG PO2 57.2 mmHg (75.0-100.0); AaDO2 106.7 mmHg; COHb 0.7 % (0.5-1.5); MetHb 0.3 % (0.0-1.5); O2Hb 88.6 % (94.0-97.0); SITE, ABG Right Brachial
[2019-11-05 13:09] VITALS: BP 138/62
[2019-11-05] MEDS: LORAZEPAM 0.5 MG TABLET PO PRN (13:09)
--- NOTE | 2019-11-05 14:15 | NUR ---
MS RN NOTES Spoke with Marilu LEVY from [facility] to give report. Unable to give report at this time. Per Marilu LEVY, she will call back in 15 minutes. Patient in stable condition. Family at bedside. Will continue to monitor.
--- NOTE | 2019-11-05 15:06 | NUR ---
MS IMPLEMENT MECHANIC NOTES Patient discharged for [facility] at this time. Patient in stable condition. VS stable with no acute distress. Breathing slightly labored on 4LPM via NC with SPO2 98% and no respiratory distress. Denies pain. No signs and symptoms of pain. Skin intact. Medication reconciliation and discharge orders reviewed and explained to Patient and family. Patient and family verbalized understanding. All belongings with Patient. Patient will follow up with primary MD. Patient picked up by Ambulance Transport.
--- NOTE | 2019-11-05 17:03 | NUR ---
MS RN NOTES Report given to Aleisha LEVY from [facility].
== END 2019-11-05 15:30 | DRG 291 ==
LOC: ER 23:38 → ICU 11-01 01:26 → TELE 11-01 19:45 → MED 11-04 12:35
PROVIDERS: ADMIT Internal Medicine
DX: I11.0 Hypertensive heart disease with heart failure (principal); J96.01 Acute respiratory failure with hypoxia; G93.41 Metabolic encephalopathy; N17.0 Acute kidney failure with tubular necrosis; I50.31 Acute diastolic (congestive) heart failure; I16.0 Hypertensive urgency; I48.91 Unspecified atrial fibrillation; M81.0 Age-related osteoporosis without current pathological fracture; E11.9 Type 2 diabetes mellitus without complications; D72.829 Elevated white blood cell count, unspecified; F03.90 Unspecified dementia, unspecified severity, without behavioral disturbance, psychotic disturbance, mood disturbance, and anxiety; F32.9 Major depressive disorder, single episode, unspecified; F41.9 Anxiety disorder, unspecified; Z79.83 Long term (current) use of bisphosphonates; Z86.73 Personal history of transient ischemic attack (TIA), and cerebral infarction without residual deficits; Z79.01 Long term (current) use of anticoagulants; E78.5 Hyperlipidemia, unspecified; F09 Unspecified mental disorder due to known physiological condition; E21.0 Primary hyperparathyroidism
CPT/HCPCS: 36415; 36600; 71045-TC; 80048-TC; 80053-TC; 82550-TC; 82803-TC; 82962-TC; 83735-TC; 83880; 83970; 84100-TC; 84155; 84165; 84484-TC; 85025-TC; 85610-TC; 85730-TC; 87081-TC; 94799-TC; 97116-TC; 97530-TC; 97535-TC; 99082-TC; G0378; J1815; J1940; J2405; J3490